=== PATIENT | female | born 1965 | race African-American/Black ===

== ENCOUNTER 2016-08-21 20:54 | Emergency (ER) | payer MEDICARE, MEDICAID ==
[~2016-08-21] VITALS: Ht 172.7 cm; Wt 78.6 kg
[2016-08-22] MEDS ORDERED: ACETAMINOPHEN 325MG TABLET PO ONE (00:15)
[2016-08-22 00:41] VITALS: BP 123/77
== END 2016-08-22 01:05 | disposition home or self-care (01) ==
LOC: ER 20:55
DX: M25.511 Pain in right shoulder (principal); I50.9 Heart failure, unspecified; E78.00 Pure hypercholesterolemia, unspecified; K21.9 Gastro-esophageal reflux disease without esophagitis; I10 Essential (primary) hypertension; Z88.0 Allergy status to penicillin; Z95.0 Presence of cardiac pacemaker; Z95.810 Presence of automatic (implantable) cardiac defibrillator
CPT/HCPCS: 99283

== ENCOUNTER 2017-05-01 14:59 | Emergency (ER) | payer MEDICARE, MEDICAID | END 2017-05-01 18:37 | disposition left against medical advice (07) | LOC: ER 14:59 | DX: Z04.3 Encounter for examination and observation following other accident (principal); Z53.21 Procedure and treatment not carried out due to patient leaving prior to being seen by health care provider ==

== ENCOUNTER 2017-05-02 10:38 | Emergency (ER) | payer OTHER, MEDICAID ==
[~2017-05-02] VITALS: Ht 172.7 cm; Wt 91.0 kg
[2017-05-02 11:04] VITALS: BP 150/79
== END 2017-05-02 15:16 | disposition home or self-care (01) ==
LOC: ER 12:59
DX: S62.112A Displaced fracture of triquetrum [cuneiform] bone, left wrist, initial encounter for closed fracture (principal); I11.0 Hypertensive heart disease with heart failure; I50.9 Heart failure, unspecified; E78.00 Pure hypercholesterolemia, unspecified; K21.9 Gastro-esophageal reflux disease without esophagitis; Z88.0 Allergy status to penicillin; W01.0XXA Fall on same level from slipping, tripping and stumbling without subsequent striking against object, initial encounter; Y93.89 Activity, other specified; Y92.89 Other specified places as the place of occurrence of the external cause; Y99.8 Other external cause status
CPT/HCPCS: 29125; 73090; 73110; 81025; 99284

== ENCOUNTER 2018-01-08 22:34 | Emergency (ER) | payer OTHER, MEDICAID ==
[~2018-01-08] VITALS: Ht 172.7 cm; Wt 86.0 kg
[2018-01-09] MEDS ORDERED: HYDROCODONE/ACETAMINOPHEN 5/325MG TABLET PO ONE (02:45)
[2018-01-09 03:27] VITALS: BP 139/77
== END 2018-01-09 04:28 | disposition home or self-care (01) ==
LOC: ER 22:34
DX: S92.512A Displaced fracture of proximal phalanx of left lesser toe(s), initial encounter for closed fracture (principal); W18.40XA Slipping, tripping and stumbling without falling, unspecified, initial encounter; Y93.89 Activity, other specified; Y92.89 Other specified places as the place of occurrence of the external cause; Y99.8 Other external cause status
CPT/HCPCS: 73630; 99284; Z7610

== ENCOUNTER 2018-11-04 20:26 | Emergency (ER) | payer OTHER, MEDICAID ==
[~2018-11-04] VITALS: Ht 172.7 cm; Wt 91.0 kg
[2018-11-04] MEDS ORDERED: IBUPROFEN 600MG TABLET PO ONE (22:30)
[2018-11-04 23:20] VITALS: BP 141/87
== END 2018-11-04 23:15 | disposition home or self-care (01) ==
LOC: ER 20:26
DX: M25.572 Pain in left ankle and joints of left foot (principal); Z88.0 Allergy status to penicillin
CPT/HCPCS: 73610; 99283

== ENCOUNTER 2018-11-13 17:25 | Emergency (ER) | payer OTHER, MEDICAID ==
[~2018-11-13] VITALS: Ht 172.7 cm; Wt 91.0 kg
[2018-11-13 18:03] VITALS: BP 162/95
[2018-11-13] MEDS ORDERED: ACETAMINOPHEN 325MG TABLET PO ONE (20:15)
== END 2018-11-13 22:13 | disposition home or self-care (01) ==
LOC: ER 17:25
DX: S93.402A Sprain of unspecified ligament of left ankle, initial encounter (principal); I11.0 Hypertensive heart disease with heart failure; I50.9 Heart failure, unspecified; E78.00 Pure hypercholesterolemia, unspecified; X50.1XXA Overexertion from prolonged static or awkward postures, initial encounter; Y93.9 Activity, unspecified; Y92.9 Unspecified place or not applicable; Z88.0 Allergy status to penicillin; Z88.6 Allergy status to analgesic agent; Z88.8 Allergy status to other drugs, medicaments and biological substances; Z95.0 Presence of cardiac pacemaker; Z90.710 Acquired absence of both cervix and uterus
CPT/HCPCS: 73610; 99283